=== PATIENT | male | born 1995 | race Caucasian/White ===

== ENCOUNTER 2017-10-19 18:39 | Emergency (ER) | payer SELFPAY ==
[2017-10-19 19:16] LABS: ADD MAN DIFF? NO
[2017-10-19 19:19] LABS: BASO % 1 % (0-3); EOS # 0.1 x10^3/uL (0.0-0.7); EOS % 2 % (0-3); HEMATOCRIT 44.7 % (39.0-53.0); HEMOGLOBIN 15.5 g/dL (13.0-17.5); LYMPH % 38 % (24-48); MEAN CORPUSCULAR HEMOGLOBIN 29 pg (25-35); MEAN CORPUSCULAR HGB CONC 35 g/dL (31-37); MEAN CORPUSCULAR VOLUME 83 fL (79-100); MONO # 0.8 x10^3/uL (0.0-1.1); MONO % 16 % (0-9); NEUT # 2.2 x10^3uL (1.8-7.7); NEUT % 43 % (31-73); PLATELET COUNT 202 x10^3/uL (140-400); RED BLOOD COUNT 5.38 x10^6/uL (4.30-5.70); WHITE BLOOD COUNT 5.2 x10^3/uL (4.0-11.0)
[2017-10-19 19:31] LABS: ANION GAP 12 (6-14); BLOOD UREA NITROGEN 16 mg/dL (8-26); CALCIUM 9.5 mg/dL (8.5-10.1); CARBON DIOXIDE 26 mmol/L (21-32); CHLORIDE 99 mmol/L (98-107); CREATININE 0.9 mg/dL (0.7-1.3); GFR 106.5; GLUCOSE 71 mg/dL (70-99); POTASSIUM 3.5 mmol/L (3.5-5.1); SODIUM 137 mmol/L (136-145)
[2017-10-19 19:35] LABS: BARBITURATES NEG (NEG); BENZODIAZEPINES NEG (NEG); CANNABINOIDS POS (NEG); COCAINE NEG (NEG); METHADONE NEG (NEG); OPIATES NEG (NEG); PHENCYCLIDINE NEG (NEG)
[2017-10-19 19:36] LABS: ACETAMIN < 2 mcg/ml (10-30); AMPHETAMINE/METHAMPHETAMINE POS (NEG); ETHANOL < 10 mg/dL (0-10); ETHANOL, URINE NEG (NEG); SALIC 5.3 mg/dL (2.8-20.0)
== END 2017-10-19 21:07 | disposition home or self-care (01) ==
LOC: ER 18:39
DX: F15.10 Other stimulant abuse, uncomplicated (principal); F90.9 Attention-deficit hyperactivity disorder, unspecified type; F41.9 Anxiety disorder, unspecified; F10.20 Alcohol dependence, uncomplicated; F12.10 Cannabis abuse, uncomplicated; F32.9 Major depressive disorder, single episode, unspecified
CPT/HCPCS: 36415; 80048; 80307; 80329; 85025; 99284; G0480